=== PATIENT | male | born 1940 | race Caucasian/White ===

== ENCOUNTER 2017-07-17 08:56 | Day surgery (SDC) | payer OTHER ==
[2017-07-17] MEDS ORDERED: D5 LR 1000 ML 1,000 ML IV ONE (09:04)
[2017-07-17] MEDS ORDERED: DIPRIVAN VIAL 20 ML ONE (10:18)
[2017-07-17] MEDS ORDERED: FENTANYL INJ 100 mcg ONE (10:18)
[2017-07-17] MEDS ORDERED: NORMODYNE INJ 20 MG VIAL ONE (10:28)
[2017-07-17 10:50] VITALS: BP 141/79
== END 2017-07-17 10:59 | disposition home or self-care (01) ==
LOC: SURG1 08:56
PROVIDERS: ATTEND Internal Medicine Gastroenterology
PROC: 0DBP8ZX Excision of Rectum, Via Natural or Artificial Opening Endoscopic, Diagnostic (ICD-10-PCS; principal; 2017-07-17 12:00)
PROC: 0DJD8ZZ Inspection of Lower Intestinal Tract, Via Natural or Artificial Opening Endoscopic (ICD-10-PCS; principal; 2017-07-17 12:00)
DX: Z12.11 Encounter for screening for malignant neoplasm of colon (principal); R10.84 Generalized abdominal pain; K57.30 Diverticulosis of large intestine without perforation or abscess without bleeding; K62.1 Rectal polyp; K64.0 First degree hemorrhoids
CPT/HCPCS: 99100; A4217; J3010; J3490; J7120